=== PATIENT | female | born 1965 | race Caucasian/White ===

== ENCOUNTER 2021-02-04 11:15 | Emergency (ER) | payer BC ==
[2021-02-04] MEDS ORDERED: DIPHTH,PERTUSS(ACELL),TET 0.5 ML DISP.SYRIN IM ONE ×2 (11:41→11:49)
[2021-02-04 11:44] VITALS: TEMP 99; BMI 51.6
[2021-02-04 11:47] VITALS: BP 147/91; PULSE 79
== END 2021-02-04 11:55 | disposition home or self-care (01) ==
LOC: FER 11:15
PROC: 0HDQXZZ Extraction of Finger Nail, External Approach (ICD-10-PCS; principal; 2021-02-04)
PROC: 3E0234Z Introduction of Serum, Toxoid and Vaccine into Muscle, Percutaneous Approach (ICD-10-PCS; 2021-02-04)
DX: S51.011A Laceration without foreign body of right elbow, initial encounter (principal); W19.XXXA Unspecified fall, initial encounter; Y92.9 Unspecified place or not applicable
CPT/HCPCS: 90715; 99284-25

== ENCOUNTER 2021-02-11 13:54 | Emergency (ER) | payer BC ==
[2021-02-11 14:07] VITALS: BP 139/88; PULSE 83; TEMP 99.1; BMI 51.6
== END 2021-02-11 14:35 | disposition home or self-care (01) ==
LOC: FER 13:54
DX: S51.011A Laceration without foreign body of right elbow, initial encounter (principal); W19.XXXA Unspecified fall, initial encounter; Z48.02 Encounter for removal of sutures
CPT/HCPCS: 99281-25